=== PATIENT | female | born 1955 | race Caucasian/White ===

== ENCOUNTER → 2017-09-26 | Outpatient (CLI) | payer OTHER ==
[~2017-09-26] MED LIST: ATORVASTATIN CA20 MG PO; BARIATRIC ADVANTAGE PO; CALCIUM 500+D1 EACH PO; CARVEDILOL12.5 MG PO; CARVEDILOL25 MG PO; CEPHALEXIN500 MG PO; CIPRO500 MG PO; ECOTRIN325 MG PO; FIBER TABS625 MG; HYDROCHLOROTHIA25 MG; LEVOTHYROXINE50 MCG PO; LOSARTAN POTAS100 MG PO; METRONIDAZOLE500 MG PO; MULTI-VITAMIN1 EACH; PANTOPRAZOLE SO40 MG PO; POTASSIUM CHLO10 ME1 PO; PROAIR HFA INH8.5 GM; TYLENOL # 31 EA PO; VANCOMYCIN HCL250 MG PO; VIMOVO PO; ZYRTEC10 M3 PO
--- NOTE | 2017-10-06 08:26 | Diagnostic Imaging Report ---
#[id number] - MGSCRNBI #BILATERAL DIGITAL SCREENING MAMMOGRAM WITH CAD: 09/26/2017 CLINICAL: Routine screening. Comparison is made to exams dated: 09/15/2016 mammogram, 09/12/2015 mammogram and 06/13/2014 mammogram - [facility]. Current study contains 4 films. There are scattered fibroglandular elements in both breasts. Current study was also evaluated with a Computer Aided Detection (CAD) system. There are post operative findings in the right breast with a scar marker present. There is a mole marker on the left breast. No significant masses, calcifications, or other findings are seen in either breast. There has been no significant interval change. IMPRESSION: BENIGN There is no mammographic evidence of malignancy. A 1 year screening mammogram is recommended. The patient will be notified by letter of the results. Keshav Royal Jr., D.O. cw/:10/05/2017 11:28:26 Service Captain: Stephanie GUTIERREZ(R)(M), [facility] letter sent: Compared to Prior B9 Mammogram BI-RADS: 2 Benign
== END ==
LOC: MAMMO 08:46
PROVIDERS: ATTEND Internal Medicine
DX: Z12.31 Encounter for screening mammogram for malignant neoplasm of breast (principal)

== ENCOUNTER → 2018-09-29 | Outpatient (CLI) | payer OTHER | LOC: MAMMO 09:06 | PROVIDERS: ATTEND Internal Medicine | DX: Z12.31 Encounter for screening mammogram for malignant neoplasm of breast (principal) | CPT/HCPCS: 77067 ==

== ENCOUNTER → 2019-03-14 | Outpatient (CLI) | payer MEDICARE, OTHER ==
--- NOTE | 2019-03-14 14:45 | Diagnostic Imaging Report ---
Exam: Left foot series, 3 views. Clinical History: Trauma Comparison: None. Findings: 3 views of the left foot demonstrate postoperative findings of prior first metatarsal osteotomy and fixation with a screw and pin. No acute fracture or dislocation. Alignment is anatomic. There is apparent tarsometatarsal fusion at the third TMT joint. The soft tissues appear unremarkable. Small plantar calcaneal spur. Impression: No acute osseous injury. Postoperative findings as above. Signed by: Nirmala Kim MD on 03/14/2019 2:42 PM
== END ==
LOC: RAD 12:18
PROVIDERS: ATTEND Internal Medicine
DX: Z98.890 Other specified postprocedural states (principal); S99.922A Unspecified injury of left foot, initial encounter; M77.32 Calcaneal spur, left foot

== ENCOUNTER → 2019-06-04 | Day surgery (SDC) | payer MEDICARE, OTHER ==
[2019-05-28 10:51] LABS: BASOPHILS # (AUTO) 0.1 (0.0-0.1); BASOPHILS % 1.2 % (0.0-1.0); EOSINOPHILS # (AUTO) 0.2 (0.0-0.4); HEMATOCRIT 40.3 % (34.2-44.1); HEMOGLOBIN 12.6 g/dL (12.0-16.0); LYMPHOCYTES # (AUTO) 1.5 (1.0-3.2); LYMPHOCYTES % 36.3 % (18.0-39.1); MEAN CORPUSCULAR HEMOGLOBIN 31.3 pg (28-32); MEAN CORPUSCULAR HGB CONC 31.3 g/dL (31-35); MONOCYTES # (AUTO) 0.6 (0.2-0.8); MONOCYTES % 14.9 % (4.4-11.3); NEUTROPHILS # (AUTO) 1.8 (2.1-6.9); NEUTROPHILS % 42.4 % (38.7-80.0); PLATELET COUNT 200 x10e3/uL (140-360); RED BLOOD COUNT 4.03 x10e6/uL (3.6-5.1)
--- NOTE | 2019-05-28 11:18 | Diagnostic Imaging Report ---
EXAMINATION: CHEST 2 VIEWS INDICATION: Pre-operative COMPARISON: None FINDINGS: LINES/TUBES:None LUNGS:The lungs are hyperinflated. No focal consolidation or pulmonary edema. Mild bibasilar subsegmental atelectasis. PLEURA:No pleural effusion or pneumothorax. MEDIASTINUM:The cardiomediastinal silhouette appears normal in size and shape. BONES/SOFT TISSUES:No acute osseous injury. ABDOMEN:No free air under the diaphragm. Status post cholecystectomy. IMPRESSION: Hyperinflated lungs. No focal pneumonia or pulmonary edema. Signed by: Nirmala Kim MD on 05/28/2019 11:15 AM
[2019-05-28 11:22] LABS: ANION GAP 15.2 mmol/L (8-16); BLOOD UREA NITROGEN 17 mg/dL (7-26); BUN/CREATININE RATIO 22 (6-25); CALCIUM 10.1 mg/dL (8.4-10.2); CARBON DIOXIDE 22 mmol/L (22-29); CHLORIDE 107 mmol/L (98-107); CREATININE, SERUM 0.76 mg/dL (0.57-1.11); EST GLOMERULAR FILTRATION RATE > 60 ML/MIN (60-); GLUCOSE 93 mg/dL (74-118); POTASSIUM 4.2 mmol/L (3.5-5.1); SODIUM 140 mmol/L (136-145)
[~2019-06-04] MED LIST changes: +ACETAMINOPHEN 1000 MG/100 ML IV ONE; +ASPIRIN81 MG; +BETAMETHASONE DISODIUM PHOS 6 MG/ML VIAL ONE; +BUPIVACAINE HCL 0.5% INJ 30 ML VIAL INJ ONE; +CEFAZOLIN SOD 1 GM/NS 50ML 100 ML IV ONE; +DEXAMETHASONE SOD PHOS INJ 4 MG/ML VIAL ONE; +DICYCLOMINE HCL20 MG PO; +EPHEDRINE SULFATE INJ 50 MG/10 ML SYR ONE; +FENTANYL CITRATE/PF 100MCG/2 ML INJ ONE; +INHALER; +LIDOCAINE HCL 1% LOCAL INJ 20 ML VIAL ONE; +LIDOCAINE HCL 2% LOCAL INJ 5 ML SDV VIAL INJ ONE; +METRONIDAZOLE250 MG PO; +MIDAZOLAM HCL 2 MG/2 ML VIAL ONE; +MUPIROCIN 2% OINT 22 GM TUBE ONE; +ONDANSETRON HCL INJ 2MG/ML 2ML 2 MG/ML VIAL ONE; +PROPOFOL IV EMULSION 10 MG/ML 20 ML VIAL ONE; +SEVOFLURANE INHAL SOLN 250 ML PEN BTL ONE
--- OUTSIDE RECORDS SUMMARY | 2019-06-04 05:32 | XMS REPORT ---
Author Author [facility] Address Unknown Phone Unavailable Care Team Providers Care Ward Helper Name Role Phone JOSE L ATKINS Unavailable Unavailable RAVINDER BARROSO Unavailable Unavailable Problems This patient has no known problems. Allergies, Adverse Reactions, Alerts This patient has no known allergies or adverse reactions. Medications This patient has no known medications. Results Test Description Test Time Test Comments Text Results Atomic Results Result Comments CHEST 2 VIEWS 2019-05-28 11:14:00 [place] [address] Patient Name: JOYCE GARRIDO MR #: [id number] : 1955 Age/Sex: 64/F Req #: [id number] Adm Physician: Ordered by: JOSE L ATKINS DPM Report #: [id number] Location: OR Room/Bed: Procedure: [id number] DX/CHEST 2 VIEWS Exam Date: Exam Time: REPORT STATUS: Signed EXAMINATION: CHEST 2 VIEWS INDICATION: Pre-operative COMPARISON: None FINDINGS: LINES/TUBES:None LUNGS:The lungs are hyperinflated. No focal consolidation or pulmonary edema. Mild bibasilar subsegmental atelectasis. PLEURA:No pleural effusion or pneumothorax. MEDIASTINUM:The cardiomediastinal silhouette appears normal in size and shape. BONES/SOFT TISSUES:No acute osseous injury. ABDOMEN:No free air under the diaphragm. Status post cholecystectomy. IMPRESSION: Hyperinflated lungs. No focal pneumonia or pulmonary edema. Signed by: Mariana Duncan MD on 05/28/2019 11:15 AM Dictated By: MARIANA DUNCAN MD 14 Transcribed By: MANOLO on 05/28/191114 COPY TO: JOSE L ATKINS DPM FOOT LEFT COMPLETE 2019-03-14 14:38:00 [facility] [address] [place] [address] Patient Name: JOYCE GARRIDO MR #: [id number] : 1955 Age/Sex: 63/F Req #: [id number] Adm Physician: Ordered by: RAVINDER BARROSO MD Report #: [id number] Location: [facility] Room/Bed: Procedure: [id number] DX/FOOT LEFT COMPLETE Exam Date: 03/14/19 Exam Time: 1230 REPORT STATUS: Signed Exam: Left foot series, 3 views. Clinical History: Trauma Comparison: None. Findings: 3 views of the left foot demonstrate postoperative findings of prior first metatarsal osteotomy and fixation with a screw and pin. No acute fracture or dislocation. Alignment is anatomic. There is apparent tarsometatarsal fusion at the third TMT joint. The soft tissues appear unremarkable. Small plantar calcaneal spur. Impression: No acute osseous injury. Postoperative findings as above. Signed by: Mariana Duncan MD on 03/14/2019 2:42 PM Dictated By: MARIANA DUNCAN MD 41 Transcribed By: MANOLO on 03/14/191441 COPY TO: RAVINDER BARROSO MD MAMMOGRAPHY DIGITAL SCR BILAT 2018-09-29 10:23:00 [place] [address] Patient Name: JOYCE GARRIDO MR #: [id number] : 1955 Age/Sex: 63/F Req #: [id number] Adm Physician: Ordered by: RAVINDER BARROSO MD Report #: [id number] Location: MAMMO Room/Bed: Procedure: [id number] MG/MAMMOGRAPHY DIGITAL SCR BILAT Exam Date: 09/29/18 Exam Time: 0916 REPORT STATUS: Signed #[id number] - MGSCRBIL #BILATERAL DIGITAL SCREENING MAMMOGRAM WITH CAD: 09/29/2018 CLINICAL: Routine screening. Comparison is made to exams dated: 09/26/2017 mammogram and 09/12/2015 mammogram - [facility]. Current study contains 4 films. There are scattered fibroglandular elements in both breasts. Current study was also evaluated with a Computer Aided Detection (CAD) system. There are post operative findings in the right breast with a scar marker present. There is a mole marker on both breasts. No significant masses, calcifications, or other findings are seen in either breast. There has been no significant interval change. IMPRESSION: BENIGN There is no mammographic evidence of malignancy. A 1 year screening mammogram is recommended. The patient will be notified by letter of the results. Miki Royal Jr., D.O. cw/:10/12/2018 07:56:11 Center Human Resources Manager: Stephanie GUTIERREZ(Odell)(M), [facility] letter sent: Compared to Prior B9 Mammogram BI-RADS: 2 Benign Dictated By: MIKI ROYAL DO 5 Transcribed By: JANKI on 10/12/18755 COPY TO: RAVINDER BARROSO MD MAMMOGRAM DIGITAL SCR BI [place] [address] Patient Name: JOYCE GARRIDO MR #: [id number] : 1955 Age/Sex: 62/F Req #: [id number] Adm Physician: Ordered by: RAVINDER BARROSO MD Report #: [id number] Location: MAMMO Room/Bed: Procedure: [id number] MG/MAMMOGRAM DIGITAL SCR BI Exam Date: 09/26/17 Exam Time: 0934 REPORT STATUS: Signed #[id number] - MGSCRNBI #BILATERAL DIGITAL SCREENING MAMMOGRAM WITH CAD: 09/26/2017 CLINICAL: Routine screening. Comparison is made to exams dated: 09/15/2016 mammogram, 09/12/2015 mammogram and 06/13/2014 mammogram - [facility]. Current study contains 4 films. There are scattered fibroglandular elements in both breasts. Current study was also evaluated with a Computer Aided Detection (CAD) system. There are post operative findings in the right breast with a scar marker present. There is a mole marker on the left breast. No significant masses, calcifications, or other findings are seen in either breast. There has been no significant interval change. IMPRESSION: BENIGN There is no mammographic evidence of malignancy. A 1 year screening mammogram is recommended. The patient will be notified by letter of the results. Miki Royal Jr., D.O. cw/:10/05/2017 11:28:26 Center Human Resources Manager: Stephanie GUTIERREZ(R)(M), [facility] letter sent: Compared to Prior B9 Mammogram BI-RADS: 2 Benign Dictated By: MIKI ROYAL DO 27 Transcribed By: JANKI on 10/05/171127 COPY TO: RAVINDER BARROSO MD
--- NOTE | 2019-06-04 09:11 | Diagnostic Imaging Report ---
EXAMINATION: FOOT LEFT AP LAT INDICATION: Postoperative COMPARISON: Left foot radiographs of 03/14/2019 FINDINGS: Again seen are postoperative findings of prior first metatarsal osteotomy with screw and pin fixation. There has been interval K wire fixation of the second toe with the wire traversing the interphalangeal joints. No unexpected fracture. Alignment is near-anatomic. Mild scattered degenerative changes. Overlying splint material obscures fine bony detail. Small plantar calcaneal spur. IMPRESSION: Postoperative changes of the left foot as above. Signed by: Nirmala Kim MD on 06/04/2019 9:08 AM
[2019-06-04 09:30] VITALS: BP 119/69
--- NOTE | 2019-06-04 12:03 | Operative Report ---
DATE OF PROCEDURE: 06/04/2019 SURGEON: Andrea Andrew DPM PREOPERATIVE DIAGNOSIS: Painful contracted hammertoe 2nd toe left foot to the distal interphalangeal joint area. POSTOPERATIVE DIAGNOSIS: Confirmed. OPERATIVE PROCEDURES: 1. Arthroplasty of 2nd toe left foot with K-wire fixation. 2. Intraoperative use of fluoroscopy. 3. Trigger point shot of cortisone. 4. Application of posterior splint. ANESTHESIA: General. HEMOSTASIS: Pneumatic thigh tourniquet at 350 mmHg. PROCEDURE IN DETAIL: The patient was taken into the operating room and placed on the operating room table in a supine position. Following induction of general anesthesia by the anesthesiologist, Webril wraps were placed on the patient's left thigh followed by application of left thigh tourniquet. The left lower extremity was then prepped and draped in the usual aseptic manner and following procedures were then performed: Procedure #1: Arthroplasty of 2nd toe left foot with K-wire fixation. Attention was directed to the distal aspect of the 2nd toe, where a curvilinear incision was performed overlying the distal interphalangeal joint. The incision was deepened down to the joint capsule. Transverse capsulotomy was then performed exposing the head of the middle phalanx of the 2nd toe left foot. Via use of an oscillating saw, head of the middle phalanx was excised from the operation site in toto. Utilizing a rongeur, the cartilage to the base of the distal phalanx was rasped until good viable bleeding bone was achieved. The areas were then copiously flushed with sterile antibiotic solution and suction. Then, a 0.045 K-wire was introduced crossing the distal interphalangeal joint and proximal interphalangeal joint to achieve proper anatomic reduction and to allow for proper fusion of the toe. Procedure #2: Intraoperative use of fluoroscopy was then used to make sure proper alignment and fixation was achieved. The areas were then copiously flushed with sterile antibiotic solution and suctioned, and closure was then obtained utilizing 4-0 Vicryl for reapproximation of the extensor tendon and 4-0 nylon for reapproximation of the skin. Procedure #3: Trigger point shot of cortisone was then given to the 2nd interspace of the left foot. Then, approximately 5 mL of 0.5% plain Marcaine plus 5 mL of 1% Xylocaine plain were used to achieve local anesthesia of above-mentioned surgical area. Sterile dressing was applied. Upon release of the thigh tourniquet, blood hyperemia was noted immediate to all digits of the patient's left foot. Procedure #4: Application of posterior splint. A properly placed posterior splint was then applied keeping the foot in 90 degrees with respect to the leg to try for any type of postop complications and returned to the operating room. The patient was then transferred from the OR to recovery room with vital signs stable and neurovascular status intact. No intraoperative complications were encountered. Blood loss from the surgery was minimal. The patient is to remain nonweightbearing with the aid of crutches for the next 4 to 6 weeks. JAIMEE Rock/BOL /[id number]
== END | disposition home or self-care (01) ==
LOC: OR 05:25
PROVIDERS: ATTEND Podiatrist Foot Surgery
DX: M20.42 Other hammer toe(s) (acquired), left foot (principal); M79.672 Pain in left foot; Z01.810 Encounter for preprocedural cardiovascular examination; Z01.812 Encounter for preprocedural laboratory examination; Z01.811 Encounter for preprocedural respiratory examination; Z88.8 Allergy status to other drugs, medicaments and biological substances; E03.9 Hypothyroidism, unspecified; B15.9 Hepatitis A without hepatic coma; I10 Essential (primary) hypertension; I48.91 Unspecified atrial fibrillation; J45.909 Unspecified asthma, uncomplicated; F41.9 Anxiety disorder, unspecified
CPT/HCPCS: 28285; 36415; 71046; 73620; 80048; 85025; 93005; C1713; J0131; J0690; J0720; J1100; J2001 ×2; J2250; J2405; J2704; J3010

== ENCOUNTER → 2019-10-16 | Outpatient (CLI) | payer MEDICARE, OTHER ==
[~2019-10-16] MED LIST changes: -ACETAMINOPHEN 1000 MG/100 ML IV ONE; -BETAMETHASONE DISODIUM PHOS 6 MG/ML VIAL ONE; -BUPIVACAINE HCL 0.5% INJ 30 ML VIAL INJ ONE; -CEFAZOLIN SOD 1 GM/NS 50ML 100 ML IV ONE; -DEXAMETHASONE SOD PHOS INJ 4 MG/ML VIAL ONE; -EPHEDRINE SULFATE INJ 50 MG/10 ML SYR ONE; -FENTANYL CITRATE/PF 100MCG/2 ML INJ ONE; -LIDOCAINE HCL 1% LOCAL INJ 20 ML VIAL ONE; -LIDOCAINE HCL 2% LOCAL INJ 5 ML SDV VIAL INJ ONE; -MIDAZOLAM HCL 2 MG/2 ML VIAL ONE; -MUPIROCIN 2% OINT 22 GM TUBE ONE; -ONDANSETRON HCL INJ 2MG/ML 2ML 2 MG/ML VIAL ONE; -PROPOFOL IV EMULSION 10 MG/ML 20 ML VIAL ONE; -SEVOFLURANE INHAL SOLN 250 ML PEN BTL ONE
== END ==
LOC: MAMMO 09:11
PROVIDERS: ATTEND Internal Medicine
DX: Z12.31 Encounter for screening mammogram for malignant neoplasm of breast (principal)
CPT/HCPCS: 77067

== ENCOUNTER → 2021-09-22 | Outpatient (CLI) | payer MEDICARE | LOC: MAMMO 08:44 | PROVIDERS: ATTEND Internal Medicine | DX: Z12.31 Encounter for screening mammogram for malignant neoplasm of breast (principal) | CPT/HCPCS: 77067 ==